=== PATIENT | male | born 1950 | race Native Hawaiian/Other Pacific Islander ===

== ENCOUNTER 2022-02-19 10:33 | Outpatient (CLI) | payer OTHER | END 2022-02-19 18:58 | disposition home or self-care (01) | LOC: CT 10:33 | PROVIDERS: ATTEND Physician Assistant | DX: I77.819 Aortic ectasia, unspecified site (principal) | CPT/HCPCS: 36415; 82565; 84520 ==

== ENCOUNTER 2022-04-06 09:00 | Outpatient (CLI) | payer OTHER ==
[2022-04-06 09:24] LABS: PLATELET COUNT 251 K/uL (142-355)
[2022-04-06 09:42] LABS: POTASSIUM 3.9 mmol/L (3.6-5.2)
== END 2022-04-06 18:57 | disposition home or self-care (01) ==
LOC: LABW 09:00
PROVIDERS: ATTEND Internal Medicine Gastroenterology
DX: R19.4 Change in bowel habit (principal); Z85.46 Personal history of malignant neoplasm of prostate; Z12.11 Encounter for screening for malignant neoplasm of colon; Z68.35 Body mass index [BMI] 35.0-35.9, adult; Z08 Encounter for follow-up examination after completed treatment for malignant neoplasm
CPT/HCPCS: 36415; 80053; 85027